=== PATIENT | female | born 1965 | race Caucasian/White ===

== ENCOUNTER 2019-10-03 14:18 | Emergency (ER) | payer OTHER ==
[~2019-10-03] VITALS: Ht 162.6 cm; Wt 109.0 kg
[2019-10-03 14:22] VITALS: BP 154/81
[2019-10-03] MEDS ORDERED: IV NORMAL SALINE 1,000ML 1,000 ML IV SCH (14:35)
--- NOTE | 2019-10-03 14:38 | PHYS DOC ---
Past History Past Medical History: Anxiety, Migraines, Other Additional Past Medical Histor: Obesity Past Surgical History: Appendectomy, Cholecystectomy, Hysterectomy, Other Additional Past Surgical Histo: Ileostomy reversal, perforated diverticulitis, bowel resections Smoking: Non-smoker Alcohol Use: None Drug Use: None General Adult EDM: Chief Complaint: ABDOMINAL PAIN HPI: HPI: Patient is a 54-year-old female presents to the emergency department for central abdominal discomfort, which began today. She describes the pain as crampy. She has had a few episodes of nausea and vomiting. She does have a history of small bowel obstructions and has had numerous abdominal surgeries in the past. She has not had any bloody emesis, or diarrhea. She states that she took a Colace prior to arrival thinking that the problem might just be constipation she has had some good bowel movement since that time. She has not had any fevers or chills, chest pain, shortness of breath. There are no alleviating or exacerbating factors to her symptoms. Review of Systems: Review of Systems: Constitutional: Denies fever or chills Eyes: Denies change in visual acuity HENT: Denies nasal congestion or sore throat Respiratory: Denies cough or shortness of breath Cardiovascular: Denies chest pain or edema GI: As per HPI : Denies dysuria Musculoskeletal: Denies back pain or joint pain Integument: Denies rash Neurologic: Denies headache, focal weakness or sensory changes Endocrine: Denies polyuria or polydipsia Lymphatic: Denies swollen glands Psychiatric: Denies depression or anxiety Heart Score: Risk Factors: Risk Factors: DM, Current or recent (<one month) smoker, HTN, HLP, family history of CAD, obesity. Risk Scores: Score 0 - 3: 2.5% MACE over next 6 weeks - Discharge Home Score 4 - 6: 20.3% MACE over next 6 weeks - Admit for Clinical Observation Score 7 - 10: 72.7% MACE over next 6 weeks - Early Invasive Strategies Allergies: Allergies: Allergies Coded Allergies Type Severity Reaction Last Updated Verified metronidazole Allergy Unknown NAUSEA 04/14/14 Yes Physical Exam: PE: PHYSICAL EXAM: CONSTITUTIONAL: Well developed, well nourished HEAD: normocephalic, atraumatic EENT: PERRL, EOMI. Conjunctivae normal color, sclerae non-icteric; moist mucous membranes. NECK: Supple, non-tender; no meningismus. LUNGS: Lungs CTA, breathing even and unlabored. Normal air movement. HEART: Regular rate and rhythm, no murmur CHEST: No deformity; non-tender ABDOMEN: The abdomen is soft, there is mild upper abdominal tenderness to palpation, the abdomen is nondistended, normal bowel sounds are present, remainder the abdomen is relatively soft and non-tender, no masses or bruits. EXTREM: Normal ROM; no deformity, no calf tenderness. Normal pulses palpable in all extremities. There is no pedal edema. SKIN: No rash; no diaphoresis NEURO: Alert; normal speech and cognition; CN's grossly intact; strength grossly intact without focal deficit. BACK: No CVA TTP. Current Patient Data: Labs: Laboratory Tests Test 10/03/19 14:28 10/03/19 14:45 Urine Collection Type Unknown Urine Color Yellow Urine Clarity Hazy Urine pH 5.5 Urine Specific [place] >=1.030 Urine Protein 30 mg/dl Urine Glucose (UA) Neg mg/dL Urine Ketones (Stick) Trace mg/dL Urine Blood Trace Urine Nitrite Neg Urine Bilirubin Neg Urine Urobilinogen Dipstick 0.2 mg/dL Urine Leukocyte Esterase Neg Urine RBC 1-2 /HPF Urine WBC 1-4 /HPF Urine Squamous Epithelial Cells Mod /LPF Urine Bacteria Mod /HPF Urine Mucus Mod /LPF White Blood Count 13.8 x10^3/uL Red Blood Count 5.08 x10^6/uL Hemoglobin 15.0 g/dL Hematocrit 45.7 % Mean Corpuscular Volume 90 fL Mean Corpuscular Hemoglobin 30 pg Mean Corpuscular Hemoglobin Concent 33 g/dL Red Cell Distribution Width 13.6 % Platelet Count 198 x10^3/uL Neutrophils (%) (Auto) 86 % Lymphocytes (%) (Auto) 9 % Monocytes (%) (Auto) 4 % Eosinophils (%) (Auto) 1 % Basophils (%) (Auto) 1 % Neutrophils # (Auto) 11.8 x10^3uL Lymphocytes # (Auto) 1.2 x10^3/uL Monocytes # (Auto) 0.5 x10^3/uL Eosinophils # (Auto) 0.1 x10^3/uL Basophils # (Auto) 0.1 x10^3/uL Sodium Level 139 mmol/L Potassium Level 4.3 mmol/L Chloride Level 103 mmol/L Carbon Dioxide Level 28 mmol/L Anion Gap 8 Blood Urea Nitrogen 24 mg/dL Creatinine 0.9 mg/dL Estimated GFR (Cockcroft-Gault) 64.8 BUN/Creatinine Ratio 27 Glucose Level 119 mg/dL Calcium Level 10.3 mg/dL Total Bilirubin 0.4 mg/dL Aspartate Amino Transf (AST/SGOT) 20 U/L Alanine Aminotransferase (ALT/SGPT) 27 U/L Alkaline Phosphatase 97 U/L Troponin I Quantitative < 0.017 ng/mL Total Protein 8.1 g/dL Albumin 4.2 g/dL Albumin/Globulin Ratio 1.1 Lipase 119 U/L Current Medications Medications (Trade) Dose Ordered Sig/Ramesh Route PRN Reason Start Time Stop Time Status Last Admin Dose Admin Sodium Chloride 1,000 ml @ 1,000 mls/hr Q1H IV 10/03/19 14:35 10/03/19 15:34 DC 10/03/19 14:35 Ondansetron HCl (Zofran) 4 mg 1X ONCE IVP 10/03/19 14:45 10/03/19 14:46 DC 10/03/19 15:36 Iohexol (Omnipaque 240 Mg/ml) 50 ml STK-MED ONCE .ROUTE 10/03/19 14:39 10/03/19 14:39 DC Iohexol (Omnipaque 300 Mg/ml) 75 ml 1X ONCE IV 10/03/19 15:00 10/03/19 15:01 DC 10/03/19 15:57 Iohexol (Omnipaque 240 Mg/ml) 50 ml 1X ONCE PO 10/03/19 15:00 10/03/19 15:01 DC 10/03/19 15:57 Info (Do NOT chart on this entry -- for MONITORING) 1 each PRN DAILY PRN MC SEE COMMENTS 10/03/19 16:15 10/05/19 16:14 EKG: EKG: [] Normal sinus rhythm at a rate of 63 bpm, left axis deviation, normal intervals. There are no acute ischemic ST/T changes. Borderline LVH is present. Radiology/Procedures: Radiology/Procedures: PROCEDURE: CT ABD PEL W/ORAL CONTRST ONLY CT ABD PEL W/ORAL CONTRST ONLY dated 10/03/2019 2:35 PM Indication:Abdominal pain... Comparison: 04/14/2014 Technique: Contiguous axial imaging the M pelvis performed without the administration of IV or oral contrast. One or more of the following individualized dose reduction techniques were utilized for this examination: 1. Automated exposure control 2. Adjustment of the mA and/or kV according to patient size 3. Use of iterative reconstruction technique One or more of the following individualized dose reduction techniques were utilized for this examination: 1. Automated exposure control 2. Adjustment of the mA and/or kV according to patient size 3. Use of iterative reconstruction technique Findings: Limited images of lung bases are clear. Heart size upper limits of normal. No pleural or or pericardial effusion. Solid abdominal viscera not well evaluated in the absence of contrast material. No apparent attenuation abnormality of the liver or spleen. Pancreas, adrenal glands and kidneys are unremarkable. No hydronephrosis. The gallbladder is surgically absent. Partially opacified GI tract normal in caliber and contour. No focal bowel wall thickening. No inflammatory stranding in the mesentery. There is evidence of prior distal colon resection. There is also evidence of prior small bowel resection with anastomosis in the right lower quadrant. There are a few scattered diverticula within the colon. No inflammatory changes in the mesentery. No ascites or lymphadenopathy. Appendix is not identified and likely surgically absent. Images of pelvis show nondistended urinary bladder. Uterus is surgically absent. No free fluid or lymphadenopathy. Bone windows show no acute findings. Multilevel spondylosis. IMPRESSION: 1. No acute abnormality of abdomen or pelvis. 2. Status post small bowel resection and distal colon resection and appendectomy. No evidence of bowel obstruction. 3. Status post cholecystectomy and hysterectomy.[] Course & Med Decision Making: Course & Med Decision Making Pertinent Labs and Imaging studies reviewed. (See chart for details) []4:40 PM: Pt condition remains stable. Feeling much better. Has not had any vomiting in the emergency department. Unfortunately, her IV infiltrated and she was unable to have another IV successfully placed, so her CT was done without IV contrast, but there is no evidence of bowel obstruction. I discussed the importance of close follow-up, and return precautions in detail. Joslyn Disclaimer: Joslyn Disclaimer: This electronic medical record was generated, in whole or in part, using a voice recognition dictation system. Departure Departure: Impression: Primary Impression: Abdominal pain Additional Impression: Nausea & vomiting Disposition: 01 HOME/RESIDENCE PRIOR TO ADM Condition: STABLE Referrals: GABBY MARIO MD (PCP) Patient Instructions: Abdominal Pain, Nausea and Vomiting Additional Instructions: There was a trace amount of protein noted in your urine, further outpatient evaluation by your primary care doctor for further underlying kidney issues is recommended. Please contact your primary care physician to schedule further outpatient evaluation. Scripts Ondansetron (ONDANSETRON ODT) 4 Mg Tab.rapdis 1 TAB PO PRN Q6-8HRS for N/V, #15 TAB Prov: MARTI GOINS MD 10/03/19 MARTI GOINS MD October 03, 2019 14:38
[2019-10-03] MEDS ORDERED: IOHEXOL 240 MG/ML 50ML VIAL. ONE (14:39)
[2019-10-03] MEDS ORDERED: ONDANSETRON PF 4 MG/2 ML VIAL. IVP ONE (14:45)
[2019-10-03] MEDS ORDERED: IOHEXOL 240 MG/ML 50ML VIAL. PO ONE (15:00)
[2019-10-03] MEDS: IOHEXOL 300 MG/ML 75 ML VIAL. IV ONE ×2 (15:00→15:57)
[2019-10-03 15:30] LABS: CALCIUM 10.3 mg/dL (8.5-10.1); CREATININE 0.9 mg/dL (0.6-1.0); GFR 64.8; POTASSIUM 4.3 mmol/L (3.5-5.1)
[2019-10-03 15:43] LABS: ALBUMIN 4.2 g/dL (3.4-5.0); ALBUMIN/GLOBULIN RATIO 1.1 (1.0-1.7); BASO # 0.1 x10^3/uL (0.0-0.2); BASO % 1 % (0-3); EOS # 0.1 x10^3/uL (0.0-0.7); EOS % 1 % (0-3); HEMATOCRIT 45.7 % (36.0-47.0); LYMPH # 1.2 x10^3/uL (1.0-4.8); LYMPH % 9 % (24-48); MEAN CORPUSCULAR HEMOGLOBIN 30 pg (25-35); MEAN CORPUSCULAR HGB CONC 33 g/dL (31-37); MEAN CORPUSCULAR VOLUME 90 fL (79-100); MONO # 0.5 x10^3/uL (0.0-1.1); MONO % 4 % (0-9); NEUT # 11.8 x10^3uL (1.8-7.7); NEUT % 86 % (31-73); RED BLOOD COUNT 5.08 x10^6/uL (3.50-5.40); RED CELL DISTRIBUTION WIDTH 13.6 % (11.5-14.5); TOTAL BILIRUBIN 0.4 mg/dL (0.2-1.0); TOTAL PROTEIN 8.1 g/dL (6.4-8.2); WHITE BLOOD COUNT 13.8 x10^3/uL (4.0-11.0)
[2019-10-03 15:46] LABS: PLATELET COUNT 198 x10^3/uL (140-400)
[2019-10-03 15:48] LABS: CLARITY,URINE HAZY; COLOR,URINE YELLOW; GLUCOSE,URINE NEG (NEG)
[2019-10-03 15:49] LABS: BACTERIA,URINE MOD /HPF (0-FEW); NITRITE,URINE NEG (NEG); SQUAMOUS EPITHELIAL CELL,UR MOD /LPF; UROBILINOGEN,URINE 0.2 mg/dL (0.2 mg/dL)
[2019-10-03 16:05] LABS: BILIRUBIN,URINE NEG (NEG)
[2019-10-03] MEDS ORDERED: CONTRAST GIVEN MC PRN (16:15)
--- NOTE | 2019-10-03 16:35 | RAD ---
CT ABD PEL W/ORAL CONTRST ONLY dated 10/03/2019 2:35 PM Indication:Abdominal pain... Comparison: 04/14/2014 Technique: Contiguous axial imaging the M pelvis performed without the administration of IV or oral contrast. One or more of the following individualized dose reduction techniques were utilized for this examination: 1. Automated exposure control 2. Adjustment of the mA and/or kV according to patient size 3. Use of iterative reconstruction technique One or more of the following individualized dose reduction techniques were utilized for this examination: 1. Automated exposure control 2. Adjustment of the mA and/or kV according to patient size 3. Use of iterative reconstruction technique Findings: Limited images of lung bases are clear. Heart size upper limits of normal. No pleural or or pericardial effusion. Solid abdominal viscera not well evaluated in the absence of contrast material. No apparent attenuation abnormality of the liver or spleen. Pancreas, adrenal glands and kidneys are unremarkable. No hydronephrosis. The gallbladder is surgically absent. Partially opacified GI tract normal in caliber and contour. No focal bowel wall thickening. No inflammatory stranding in the mesentery. There is evidence of prior distal colon resection. There is also evidence of prior small bowel resection with anastomosis in the right lower quadrant. There are a few scattered diverticula within the colon. No inflammatory changes in the mesentery. No ascites or lymphadenopathy. Appendix is not identified and likely surgically absent. Images of pelvis show nondistended urinary bladder. Uterus is surgically absent. No free fluid or lymphadenopathy. Bone windows show no acute findings. Multilevel spondylosis. IMPRESSION: 1. No acute abnormality of abdomen or pelvis. 2. Status post small bowel resection and distal colon resection and appendectomy. No evidence of bowel obstruction. 3. Status post cholecystectomy and hysterectomy. Electronically signed by: Jimy Alfaro MD (10/03/2019 4:32 PM) [facility]
[2019-10-03] MEDS ORDERED: ONDA4TAB12 PO (16:45)
--- NOTE | 2019-10-04 07:10 | EKG ---
[address] [address] Test Date: 2019-10-03 Test Time: 14:46:32 Pat Name: SOY HUSTON Department: Room: Gender: [employer]ing [employer] Att[employer]ier: : 1965 Requested By: MARTI GOINS Order Number: [id number] Reading MD: Franki Ann Measurements Intervals [place] Rate: P: RI: QRS: QRSD: T: QT: QTc: Interpretive Statements No previous ECG available for comparison Electronically Signed On 10-04-2019 8:41:03 CDT by Franki Ann
== END 2019-10-03 16:52 | disposition home or self-care (01) ==
LOC: ER 14:18
DX: R10.10 Upper abdominal pain, unspecified (principal); R11.2 Nausea with vomiting, unspecified; K59.00 Constipation, unspecified; R06.02 Shortness of breath; G43.909 Migraine, unspecified, not intractable, without status migrainosus; Z90.49 Acquired absence of other specified parts of digestive tract; Z90.89 Acquired absence of other organs; Z90.710 Acquired absence of both cervix and uterus; Z88.8 Allergy status to other drugs, medicaments and biological substances
CPT/HCPCS: 36415; 74176; 80053; 81001; 83690; 84484; 85025; 87086; 93005; 96361; 96374; 99285; J2405; Q9966; Q9967; J7030